=== PATIENT | female | born 1985 | race Asian ===

== ENCOUNTER 2021-11-09 22:50 | Emergency (ER) | payer OTHER ==
[~2021-11-09] VITALS: Ht 167.6 cm; Wt 56.7 kg
[2021-11-09 23:50] LABS: BASOPHILS # (AUTO) 0.1 K/uL (0.0-0.2); BASOPHILS % (AUTO) 0.8 % (0.0-2.0); EOSINOPHILS % (AUTO) 1.5 % (0.0-6.0); HEMATOCRIT 46 % (33-45); HEMOGLOBIN 15.2 g/dL (11.5-14.8); LYMPHOCYTES # (AUTO) 5.7 K/uL (0.8-4.8); LYMPHOCYTES % (AUTO) 41.8 % (20.0-44.0); MEAN CORPUSCULAR HGB CONC 33 g/dl (31.0-36.0); MEAN CORPUSCULAR VOLUME 95 fL (82-100); MONOCYTES # (AUTO) 0.6 K/uL (0.1-1.30); MONOCYTES % (AUTO) 4.3 % (2.0-12.0); NEUTROPHILS # (AUTO) 7.1 K/uL (1.8-8.9); NEUTROPHILS % (AUTO) 51.6 % (43.0-81.0); PLATELET COUNT (AUTO) 404 K/uL (150-450); RED BLOOD CELL COUNT(AUTO) 4.85 MIL/uL (4.0-5.2); WHITE BLOOD COUNT (AUTO) 13.7 K/uL (4.3-11.0)
[2021-11-10 00:07] LABS: BILIRUBIN,DIRECT 0.2 mg/dL (0.0-0.2); BILIRUBIN,TOTAL 0.6 mg/dL (0.2-1.0); CALCIUM, SERUM 8.4 mg/dL (8.5-10.1); CREATININE 0.8 mg/dL (0.6-1.3); POTASSIUM 3.3 mmol/L (3.5-5.1)
[2021-11-10] MEDS ORDERED: TDAP [DIPH/PERTUSSIS/TET] 0.5 ML VIAL IM ONE ×2 (00:30→01:19)
--- NOTE | 2021-11-10 00:38 | NUR ---
[id number] FROM HOME C/O +SI - HI, CUTTING SELF. PLACED ON 5150 HOLD BY [employer] FOR DTS. PT AWAKE AND ALERT X4 CALM, BREATHING EVEN AND UNLABORED. CHANGED INTO GOWN AND BELONGINGS TAKEN FROM PT ROOM. SITTER AT BEDDSIDE AND SAFETY MEASURES IN PLACE.
--- NOTE | 2021-11-10 00:49 | NUR ---
URINE COLLECTED, SENT TO LAB
--- NOTE | 2021-11-10 00:55 | NUR ---
POC BG 55. MD MADE AWARE. PROVIDED WITH FOOD AND ORANGE JUICE.
--- NOTE | 2021-11-10 01:18 | NUR ---
shady collected and sent to lab
[2021-11-10 01:47] LABS: BILIRUBIN,URINE NEGATIVE (NEGATIVE); COLOR,URINE YELLOW (YELLOW); LEUKOCYTE ESTERASE ,URINE NEGATIVE (NEGATIVE); NITRITE, URINE NEGATIVE (NEGATIVE); PROTEIN,URINE NEGATIVE (NEGATIVE); UGLUCOSE NEGATIVE (NEGATIVE); UROBILINOGEN,URINE 0.2 EU/dL (0.2)
--- NOTE | 2021-11-10 02:08 | NUR ---
CALLED [facility] FOR PEER TO PEER.
--- NOTE | 2021-11-10 03:11 | NUR ---
FOLLOWED UP WITH PAMELA DOSHI REGARDING PEER TO PEER
--- NOTE | 2021-11-10 04:45 | NUR ---
followed up again with [facility] for peer to peer.
--- NOTE | 2021-11-10 04:54 | NUR ---
ACCEPTED AT [facility] UNDER DR KRISTYN MCMAHAN FOR REPORT [facility] ETA [id number]
--- NOTE | 2021-11-10 05:06 | NUR ---
REPORT GIVEN TO ISAIAH DELACRUZ AT [facility]
[2021-11-10 07:04] VITALS: BP 118/77
--- NOTE | 2021-11-10 07:11 | NUR ---
report given to [facility], pt will be transported to [facility]
[2021-11-10 08:23] LABS: WBC,URINE NONE SEEN /HPF (0-3)
[2021-11-10 08:24] LABS: BACTERIA,URINE Rare /HPF (None Seen); SQUAMOUS EPITHELIAL CELL,UR Rare /HPF (None Seen)
== END 2021-11-10 07:26 | disposition short-term general hospital (02) ==
LOC: ER 23:01
DX: R45.88 Nonsuicidal self-harm (principal); S51.812A Laceration without foreign body of left forearm, initial encounter; S51.811A Laceration without foreign body of right forearm, initial encounter; Y28.9XXA Contact with unspecified sharp object, undetermined intent, initial encounter; Y92.89 Other specified places as the place of occurrence of the external cause; F32.A Depression, unspecified; E16.2 Hypoglycemia, unspecified; Z20.822 Contact with and (suspected) exposure to COVID-19; Z72.89 Other problems related to lifestyle
CPT/HCPCS: 99285; 85025; 80048; 80076; 36415; 80143; 80320; 80307; 90471; 90715; 84703; 81001; 82962 ×3; 87426; C9803; G0480